=== PATIENT | female | born 1945 | race Caucasian/White ===

== ENCOUNTER 2020-02-18 16:27 | Inpatient (IN) ==
[2020-02-18 17:23] LABS: Basophils % 0.1 %; Eosinophils % 0.1 %; Hematocrit 39.5 % (35.3-44.9); Hemoglobin 10.9 g/dL (11.5-15.4); Immature Granulocytes % 0.1 % (0-4); Lymphocytes # 0.6 K/mcL (0.6-4.6); Lymphocytes % 7.5 %; Mean Corpuscular HGB Conc 27.6 g/dL (31.6-35.5); Mean Corpuscular Hemoglobin 26.6 pg (28.0-33.3); Mean Corpuscular Volume 96.3 fL (83.0-100.0); Mean Platelet Volume 11.3 fL (9.4-12.4); Monocytes # 0.1 K/mcL (0.0-1.3); Monocytes % 1.8 %; Platelet Count 155 K/mcL (140-400); Red Cell Distribution Width 13.6 % (11.5-14.5); Segmented Neutrophils % 90.4 %; White Blood Count 7.8 K/mcL (4.3-11.1)
[2020-02-18 17:24] LABS: Neutrophils # 7.1 K/mcL (1.6-8.9)
[2020-02-18 17:41] LABS: Troponin I < 0.03 ng/mL (< 0.04)
[2020-02-18 18:05] LABS: BUN/Creatinine Ratio 33 (6-26); Blood Urea Nitrogen 21 mg/dL (8-23); Calcium 9.3 mg/dL (8.6-10.3); Carbon Dioxide 45 mEq/L (23-29); Chloride 95 mEq/L (98-107); Glucose 222 mg/dL (70-105); Osmolality,Calculated 302 (280-300); Potassium 4.9 mEq/L (3.5-5.1); Sodium 141 mEq/L (136-145); eGFR For African Americans > 60 (> 60); eGFR For Non-African Americans > 60 (> 60)
[2020-02-18] MEDS ORDERED: methylPREDNISolone 125 MG/2 ML VIAL IVP ONE (18:21)
[2020-02-18 18:57] LABS: Mixed Venous Blood pCO2 110 mmHg (44-46); Mixed Venous Blood pH 7.22 pH Units (7.34-7.36); Mixed Venous Blood pO2 60 mmHg (35-45)
[2020-02-18] MEDS ORDERED: D5% in Water 1,000 ML IVC PRN (20:35)
[2020-02-18] MEDS ORDERED: Acetaminophen 325 MG TABLET PO PRN (20:35)
[2020-02-18] MEDS ORDERED: Naloxone 0.4 MG/ML INJ IVP PRN (20:35)
[2020-02-18] MEDS ORDERED: Dextrose Gel 15 GM/37.5 ML TUBE PO PRN ×2 (20:35)
[2020-02-18] MEDS ORDERED: *HR* Dextrose 50 % in Water (Vial) 50 ML VIAL IVP PRN (20:35)
[2020-02-18] MEDS ORDERED: Ondansetron 4 MG/2 ML VIAL IVP PRN (20:35)
[2020-02-18 21:03] LABS: Magnesium 2.3 mg/dL (1.6-2.6); Phosphorous 3.2 mg/dL (2.7-4.5)
[2020-02-18] MEDS: Ipratropium/Albuterol Neb 3 ML IH SCH ×2 (22:08→23:55)
[2020-02-18] MEDS: Sacubitril/Valsartan 24/26 MG 1 TABLET PO SCH (23:17)
[2020-02-18] MEDS: carvediloL 25 MG TABLET PO SCH (23:17)
[2020-02-18] MEDS: Furosemide 40 MG/4 ML VIAL IVP SCH (23:18)
[2020-02-18] MEDS: *HR* Heparin 5,000 UNIT/ML VIAL SQ SCH (23:18)
[2020-02-18] MEDS: Sennosides/Docusate Sodium TABLET PO SCH (23:20)
[2020-02-18] MEDS ORDERED: Albuterol 2.5 MG/3 ML NEBULIZER IH PRN (23:47)
[2020-02-19] MEDS ORDERED: Cefepime HCl 1,000 MG in Water for inj. (sterile) 10 ML IVP SCH
[2020-02-19 00:48] LABS: ABG Base Excess 18 mEq/L (-2 to 3); ABG HCO3 47 mEq/L (21-27); ABG Oxygen Saturation 93 % (95-98); ABG PCO2 78 mmHg (35-45); ABG PH 7.39 pH Units (7.32-7.45); ABG PO2 72 mmHg (85-104); ABG TCO2 49 mEq/L (20-26); Blood Gas Modality NIV
[2020-02-19] MEDS: Insulin LISPRO 300 UNITS/3 ML VIAL SQ SCH ×5 (01:28→20:15)
[2020-02-19] MEDS: Ipratropium/Albuterol Neb 3 ML IH SCH ×6 (03:42→23:42)
[2020-02-19 04:58] LABS: Hemoglobin 9.7 g/dL (11.5-15.4)
[2020-02-19 05:00] LABS: Hematocrit 34.4 % (35.3-44.9); Immature Platelets 9.7 % (1.1-6.1); Mean Corpuscular HGB Conc 28.2 g/dL (31.6-35.5); Mean Corpuscular Hemoglobin 26.5 pg (28.0-33.3); Mean Platelet Volume 11.8 fL (9.4-12.4); Red Blood Count 3.66 M/mcL (3.82-4.97); Red Cell Distribution Width 13.5 % (11.5-14.5); White Blood Count 5.9 K/mcL (4.3-11.1)
[2020-02-19 05:21] LABS: BUN/Creatinine Ratio 40 (6-26); Blood Urea Nitrogen 23 mg/dL (8-23); Calcium 8.6 mg/dL (8.6-10.3); Carbon Dioxide 42 mEq/L (23-29); Chloride 96 mEq/L (98-107); Glucose 273 mg/dL (70-105); Osmolality,Calculated 307 (280-300); Potassium 4.6 mEq/L (3.5-5.1); Sodium 142 mEq/L (136-145); eGFR For African Americans > 60 (> 60); eGFR For Non-African Americans > 60 (> 60)
[2020-02-19] MEDS: *HR* Heparin 5,000 UNIT/ML VIAL SQ SCH ×3 (05:35→20:15)
[2020-02-19] MEDS: MethylPREDNISolone 40 MG/ML VIAL IVP SCH ×2 (05:35→16:53)
[2020-02-19] MEDS ORDERED: Doxycycline 100 MG in 0.9 % Sodium Chloride Mini Bag 100 ML IVPB SCH (06:00)
[2020-02-19 06:01] LABS: ABG Base Excess 15 mEq/L (-2 to 3); ABG HCO3 43 mEq/L (21-27); ABG Oxygen Saturation 96 % (95-98); ABG PCO2 71 mmHg (35-45); ABG PH 7.39 pH Units (7.32-7.45); ABG PO2 84 mmHg (85-104); ABG TCO2 45 mEq/L (20-26); Blood Gas Modality NIV
[2020-02-19] MEDS: Furosemide 40 MG/4 ML VIAL IVP SCH ×2 (08:59→20:16)
[2020-02-19] MEDS: Anastrozole 1 MG TABLET PO SCH (09:00)
[2020-02-19] MEDS: carvediloL 25 MG TABLET PO SCH ×2 (09:00→16:52)
[2020-02-19] MEDS: Spironolactone 25 MG TABLET PO SCH (09:00)
[2020-02-19] MEDS: Venlafaxine XR (24 HR) 75 MG CAP.ER.24H PO SCH (09:00)
[2020-02-19] MEDS: Sacubitril/Valsartan 24/26 MG 1 TABLET PO SCH ×2 (09:00→20:15)
[2020-02-19] MEDS: PARoxetine 20 MG TABLET PO SCH (09:00)
[2020-02-19] MEDS: Aspirin Enteric Coated 81 MG Tablet PO SCH (09:00)
[2020-02-19] MEDS: Sennosides/Docusate Sodium TABLET PO SCH ×2 (09:00→20:15)
[2020-02-19] MEDS: Budesonide/Formoterol 80/4.5 1 PUFF INH IH SCH ×2 (11:14→19:55)
[2020-02-19] MEDS ORDERED: Perflutren Lipid Microsphere 1.3 ML in 0.9 % Sodium Chloride 8.7 ML IVP ONE (11:15)
[2020-02-19] MEDS: Insulin DETEMIR 100 UNIT/ML X5UNITS SQ SCH (20:15)
[2020-02-20] MEDS: Ipratropium/Albuterol Neb 3 ML IH SCH ×6 (03:27→23:26)
[2020-02-20] MEDS: MethylPREDNISolone 40 MG/ML VIAL IVP SCH ×2 (05:35→17:13)
[2020-02-20] MEDS: *HR* Heparin 5,000 UNIT/ML VIAL SQ SCH ×3 (05:35→21:24)
[2020-02-20 06:19] LABS: Hematocrit 37.6 % (35.3-44.9); Hemoglobin 11.1 g/dL (11.5-15.4); Mean Corpuscular HGB Conc 29.5 g/dL (31.6-35.5); Mean Corpuscular Hemoglobin 26.6 pg (28.0-33.3); Mean Platelet Volume 12.3 fL (9.4-12.4); Platelet Count 151 K/mcL (140-400); Red Blood Count 4.18 M/mcL (3.82-4.97); Red Cell Distribution Width 13.9 % (11.5-14.5)
[2020-02-20 06:40] LABS: BUN/Creatinine Ratio 43 (6-26); Blood Urea Nitrogen 22 mg/dL (8-23); Calcium 9.6 mg/dL (8.6-10.3); Carbon Dioxide 44 mEq/L (23-29); Chloride 96 mEq/L (98-107); Glucose 153 mg/dL (70-105); Osmolality,Calculated 300 (280-300); Potassium 4.1 mEq/L (3.5-5.1); Sodium 142 mEq/L (136-145); eGFR For African Americans > 60 (> 60); eGFR For Non-African Americans > 60 (> 60)
[2020-02-20] MEDS: Insulin LISPRO 300 UNITS/3 ML VIAL SQ SCH ×4 (07:15→21:25)
[2020-02-20] MEDS: PARoxetine 20 MG TABLET PO SCH (07:23)
[2020-02-20] MEDS: Spironolactone 25 MG TABLET PO SCH (07:23)
[2020-02-20] MEDS: Venlafaxine XR (24 HR) 75 MG CAP.ER.24H PO SCH (07:23)
[2020-02-20] MEDS: Aspirin Enteric Coated 81 MG Tablet PO SCH (07:23)
[2020-02-20] MEDS: carvediloL 25 MG TABLET PO SCH ×2 (07:24→17:13)
[2020-02-20] MEDS: Sennosides/Docusate Sodium TABLET PO SCH ×2 (07:24→21:23)
[2020-02-20] MEDS: Sacubitril/Valsartan 24/26 MG 1 TABLET PO SCH ×2 (07:24→21:24)
[2020-02-20] MEDS: Anastrozole 1 MG TABLET PO SCH (07:24)
[2020-02-20] MEDS: Furosemide 40 MG/4 ML VIAL IVP SCH ×2 (07:25→21:27)
[2020-02-20] MEDS: Insulin DETEMIR 100 UNIT/ML X5UNITS SQ SCH ×2 (07:25→21:24)
[2020-02-20] MEDS: Budesonide/Formoterol 80/4.5 1 PUFF INH IH SCH ×2 (07:29→19:43)
[2020-02-21] MEDS: Ipratropium/Albuterol Neb 3 ML IH SCH ×3 (03:53→11:06)
[2020-02-21] MEDS: *HR* Heparin 5,000 UNIT/ML VIAL SQ SCH (05:18)
[2020-02-21] MEDS: MethylPREDNISolone 40 MG/ML VIAL IVP SCH (05:18)
[2020-02-21 07:36] VITALS: BP 118/76
[2020-02-21] MEDS: Budesonide/Formoterol 80/4.5 1 PUFF INH IH SCH (07:37)
[2020-02-21] MEDS: Furosemide 40 MG/4 ML VIAL IVP SCH (08:45)
[2020-02-21] MEDS: carvediloL 25 MG TABLET PO SCH (08:48)
[2020-02-21] MEDS: Spironolactone 25 MG TABLET PO SCH (08:49)
[2020-02-21] MEDS: Aspirin Enteric Coated 81 MG Tablet PO SCH (08:49)
[2020-02-21] MEDS: PARoxetine 20 MG TABLET PO SCH (08:49)
[2020-02-21] MEDS: Sennosides/Docusate Sodium TABLET PO SCH (08:49)
[2020-02-21] MEDS: Venlafaxine XR (24 HR) 75 MG CAP.ER.24H PO SCH (08:49)
[2020-02-21] MEDS: Sacubitril/Valsartan 24/26 MG 1 TABLET PO SCH (08:49)
[2020-02-21] MEDS: Insulin DETEMIR 100 UNIT/ML X5UNITS SQ SCH (08:51)
[2020-02-21] MEDS: Insulin LISPRO 300 UNITS/3 ML VIAL SQ SCH (08:52)
[2020-02-21] MEDS ORDERED: Anastrozole 1 MG TABLET PO SCH (09:00)
[2020-02-21] MEDS ORDERED: Famotidine 20 MG TABLET PO SCH (09:00)
[2020-02-21 09:47] LABS: Hematocrit 37.4 % (35.3-44.9); Hemoglobin 11.1 g/dL (11.5-15.4); Mean Corpuscular HGB Conc 29.7 g/dL (31.6-35.5); Mean Corpuscular Hemoglobin 26.9 pg (28.0-33.3); Mean Corpuscular Volume 90.8 fL (83.0-100.0); Mean Platelet Volume 11.6 fL (9.4-12.4); Platelet Count 141 K/mcL (140-400); Red Blood Count 4.12 M/mcL (3.82-4.97); Red Cell Distribution Width 13.9 % (11.5-14.5); White Blood Count 7.6 K/mcL (4.3-11.1)
[2020-02-21 10:04] LABS: BUN/Creatinine Ratio 37 (6-26); Blood Urea Nitrogen 24 mg/dL (8-23); Calcium 8.9 mg/dL (8.6-10.3); Carbon Dioxide 38 mEq/L (23-29); Chloride 94 mEq/L (98-107); Glucose 327 mg/dL (70-105); Osmolality,Calculated 299 (280-300); Sodium 136 mEq/L (136-145); eGFR For African Americans > 60 (> 60); eGFR For Non-African Americans > 60 (> 60)
== END 2020-02-21 11:39 | disposition home or self-care (01) | DRG 291 ==
LOC: EMEROOARM 16:27 → 3BNU 16:27
PROVIDERS: ADMIT Internal Medicine; ATTEND Internal Medicine

== ENCOUNTER 2021-01-27 15:36 | Observation (INO) ==
[2021-01-27] MEDS ORDERED: Ondansetron 4 MG/2 ML VIAL IVP PRN (18:43)
[2021-01-27] MEDS ORDERED: Naloxone 0.4 MG/ML INJ IVP PRN (18:43)
[2021-01-27] MEDS ORDERED: D5% in Water 1,000 ML IVC PRN (18:45)
[2021-01-27] MEDS ORDERED: SODIUM CHLORIDE/NAHCO3/KCL/PEG 4,000 ML SOLN.RECON PO ONE (18:45)
[2021-01-27] MEDS ORDERED: Dextrose Gel 15 GM/37.5 ML TUBE PO PRN ×2 (18:45)
[2021-01-27] MEDS ORDERED: *HR* Dextrose 50 % in Water (Vial) 50 ML VIAL IVP PRN (18:45)
[2021-01-27] MEDS ORDERED: Iron Sucrose Complex 400 MG in 0.9 % Sodium Chloride 250 ML IVPB ONE (19:05)
[2021-01-27 19:48] LABS: Hematocrit 32.5 % (35.3-44.9); Hemoglobin 9.8 g/dL (11.5-15.4); Mean Corpuscular HGB Conc 30.2 g/dL (31.6-35.5); Mean Corpuscular Hemoglobin 27.3 pg (28.0-33.3); Mean Corpuscular Volume 90.5 fL (83.0-100.0); Mean Platelet Volume 11.4 fL (9.4-12.4); Platelet Count 145 K/mcL (140-400); Red Blood Count 3.59 M/mcL (3.82-4.97); Red Cell Distribution Width 17.4 % (11.5-14.5); White Blood Count 6.9 K/mcL (4.3-11.1)
[2021-01-27 20:10] LABS: BUN/Creatinine Ratio 33 (6-26); Blood Urea Nitrogen 28 mg/dL (8-23); Calcium 8.9 mg/dL (8.6-10.3); Chloride 91 mEq/L (98-107); Glucose 115 mg/dL (70-105); Osmolality,Calculated 296 (280-300); Potassium 3.4 mEq/L (3.5-5.1); Sodium 140 mEq/L (136-145); eGFR For African Americans > 60 (> 60); eGFR For Non-African Americans > 60 (> 60)
[2021-01-27 20:12] LABS: Carbon Dioxide > 45 mEq/L (23-29)
[2021-01-28 01:40] LABS: Hematocrit 32.2 % (35.3-44.9); Hemoglobin 9.5 g/dL (11.5-15.4); Mean Corpuscular HGB Conc 29.5 g/dL (31.6-35.5); Mean Corpuscular Hemoglobin 26.6 pg (28.0-33.3); Mean Corpuscular Volume 90.2 fL (83.0-100.0); Mean Platelet Volume 11.2 fL (9.4-12.4); Platelet Count 144 K/mcL (140-400); Red Blood Count 3.57 M/mcL (3.82-4.97); Red Cell Distribution Width 17.5 % (11.5-14.5); White Blood Count 6.5 K/mcL (4.3-11.1)
[2021-01-28 02:02] LABS: % Iron Saturation 217 % (15-50); Iron 595 mcg/dL (50-170); Transferrin 196 mg/dL (203-362)
[2021-01-28 02:04] LABS: BUN/Creatinine Ratio 35 (6-26); Blood Urea Nitrogen 25 mg/dL (8-23); Calcium 8.9 mg/dL (8.6-10.3); Carbon Dioxide 44 mEq/L (23-29); Chloride 92 mEq/L (98-107); Glucose 81 mg/dL (70-105); Osmolality,Calculated 293 (280-300); Potassium 3.1 mEq/L (3.5-5.1); Sodium 140 mEq/L (136-145); eGFR For African Americans > 60 (> 60); eGFR For Non-African Americans > 60 (> 60)
[2021-01-28 02:19] LABS: Ferritin 328 ng/mL (10-120)
[2021-01-28] MEDS: Insulin LISPRO 300 UNITS/3 ML VIAL SUBQ SCH ×2 (07:29→13:41)
[2021-01-28] MEDS ORDERED: Lidocaine -MPF 2% 5 ML VIAL ONE ×2 (08:01→10:59)
[2021-01-28] MEDS ORDERED: Simethicone 40 MG/0.6 ML MLS IR ONE (09:44)
[2021-01-28] MEDS ORDERED: *HR* Propofol 200 MG/20 ML VIAL IVP ONE (10:53)
[2021-01-28] MEDS ORDERED: *HR* FentaNYL (PF) 100 MCG/2 ML VIAL ONE (11:04)
[2021-01-28] MEDS ORDERED: *HR* Midazolam HCl 2 MG/2 ML VIAL ONE (11:16)
[2021-01-28 15:56] VITALS: BP 120/72
== END 2021-01-28 16:32 | disposition home or self-care (01) ==
LOC: 3BNU → SUATTDRO 15:36 → EDSTATUS 01-28 08:00
PROVIDERS: ADMIT Internal Medicine; ATTEND Internal Medicine
PROC: ENDOEBX (2021-01-28 08:00)